=== PATIENT | male | born 1975 | race Two or more races ===

== ENCOUNTER 2019-04-16 22:58 | Emergency (ER) | payer BC ==
--- NOTE | 2019-04-16 23:42 | EDM.PDOC ---
ED HPI GENERAL MEDICAL PROBLEM - General Chief Complaint: Eye Problems Stated Complaint: UNKNOWN Time Seen by Provider: 04/16/19 23:39 Source of Information: Reports: Patient History Limitations: Reports: No Limitations - History of Present Illness INITIAL COMMENTS - FREE TEXT/NARRATIVE: HISTORY AND PHYSICAL: History of present illness: Patient is a 43-year-old divehi speaking male presents to the ED with complaint of something in his left eye. certified court interpreter was used. Patient states that he was wearing safety glasses working on something on the ceiling when a piece of iron got in to his eye. He states he rubbed his eye and it was fine until it started bothering him a couple hours later. He states he feels like there is something under his eyelid and he can feel it every time he blinks. He denies visual changes and has no other complaints at this time. Review of systems: As per history of present illness and below otherwise all systems reviewed and negative. Past medical history: As per history of present illness and as reviewed below otherwise noncontributory. Surgical history: As per history of present illness and as reviewed below otherwise noncontributory. Social history: No reported history of drug or alcohol abuse. Family history: As per history of present illness and as reviewed below otherwise noncontributory. Physical exam: General: Patient sitting comfortably in no acute distress and nontoxic appearing HEENT: There is FB seen with lid eversion. No rust rings or FB noted in the eye. There is a small area of increased uptake to the upper eye with woodslamp examination. Atraumatic, normocephalic, pupils reactive, negative for conjunctival pallor or scleral icterus, mucous membranes moist, throat clear, neck supple, nontender, trachea midline. No meningeal signs. Lungs: Clear to auscultation, breath sounds equal bilaterally, chest nontender. Heart: S1S2, regular, negative for clicks, rubs, or overt murmur. Abdomen: Soft, nondistended, nontender. Negative for masses or hepatosplenomegaly. Negative for costovertebral tenderness. No rigidity, rebound , guarding. Pelvis: Stable nontender. Genitourinary: Deferred. Rectal: Deferred. Extremities: Atraumatic, negative for cords or calf pain. Neurovascular unremarkable. Neuro: Awake, alert, oriented. Cranial nerves II through XII unremarkable. Cerebellum unremarkable. Motor and sensory unremarkable throughout. Exam nonfocal. Notes: Diagnostics: [] Therapeutics: [] Prescriptions: Erythromycin ophthalmic Impression: Corneal abrasion Plan: Use ointment as instructed Follow up with ophthalmology Return to ED as needed as discussed Definitive disposition and diagnosis as appropriate pending reevaluation and review of above. right eye Pain Score (Numeric/FACES): 3 - Related Data Allergies Allergy/AdvReac Type Severity Reaction Status Date / Time Penicillins Allergy Rash Verified 04/16/19 23:19 Home Meds: Home Meds . [No Known Home Meds] 04/16/19 [History] Past Medical History - Past Surgical History GI Surgical History: Reports: Appendectomy Social & Family History - Family History Family Medical History: Noncontributory - Tobacco Use Smoking Status *Q: Never Smoker - Recreational Drug Use Recreational Drug Use: No ED ROS GENERAL - Review of Systems Review Of Systems: ROS reveals no pertinent complaints other than HPI. ED EXAM GENERAL W FULL EYE - Physical Exam Exam: See Below (see dictation) Course - Vital Signs Last Recorded V/S: Last Vital Signs Temp 97 F 04/16/19 22:59 Pulse 82 04/16/19 22:59 Resp 18 04/16/19 22:59 BP 134/91 H 04/16/19 22:59 Pulse Ox 95 04/16/19 22:59 Departure - Departure Time of Disposition: 23:39 Disposition: Home, Self-Care 01 Condition: Good Clinical Impression: Corneal abrasion, right - Discharge Information Instructions: Corneal Abrasion, [id number] Referrals: PCP,None [Primary Care Provider] - Forms: ED Department Discharge Additional Instructions: The following information is given to patients seen in the emergency department who are being discharged to home. This information is to outline your options for follow-up care. We provide all patients seen in our emergency department with a follow-up referral. The need for follow-up, as well as the timing and circumstances, are variable depending upon the specifics of your emergency department visit. If you don't have a primary care physician on staff, we will provide you with a referral. We always advise you to contact your personal physician following an emergency department visit to inform them of the circumstance of the visit and for follow-up with them and/or the need for any referrals to a consulting specialist. The emergency department will also refer you to a specialist when appropriate. This referral assures that you have the opportunity for follow-up care with a specialist. All of these measure are taken in an effort to provide you with optimal care, which includes your follow-up. Under all circumstances we always encourage you to contact your private physician who remains a resource for coordinating your care. When calling for follow-up care, please make the office aware that this follow-up is from your recent emergency room visit. If for any reason you are refused follow-up, please contact the [facility] Emergency Department at and asked to speak to the emergency department charge nurse. [facility] [address] [place] [address] Use ointment as instructed Follow up with ophthalmology Return to ED as needed as discussed
== END 2019-04-16 23:50 | disposition home or self-care (01) ==
LOC: MW.ED 22:58
DX: S05.01XA Injury of conjunctiva and corneal abrasion without foreign body, right eye, initial encounter (principal); Z88.0 Allergy status to penicillin; X58.XXXA Exposure to other specified factors, initial encounter
CPT/HCPCS: 99282; 99283

== ENCOUNTER 2019-11-07 21:49 | Emergency (ER) | payer BC ==
[2019-11-07] MEDS ORDERED: Ibuprofen 600 MG Tab PO ONE (23:05)
--- NOTE | 2019-11-07 23:05 | EDM.PDOC ---
ED [facility] GENERAL MEDICAL PROBLEM - General Chief Complaint: Respiratory Problem Stated Complaint: COUGH Time Seen by Provider: 11/07/19 23:00 Source of Information: Reports: Patient History Limitations: Reports: Language Barrier - History of Present Illness INITIAL COMMENTS - FREE TEXT/NARRATIVE: Patient is 42-year-old male no significant past medical history presenting with a chief complaint of cough and body aches for the past 5 days. Patient is used [id number] medication such as TheraFlu with minimal improvement of symptoms. Patient denies any fevers, shortness of breath, or recent travels. Patient is lived in [place] for the past 6 years. No known sick contacts. No vomiting or diarrhea. Of note, there was difficulty with translation service in the emergency room. Patient is primarily Icelandic-speaking. Pmhx: None Pshx: None Family Hx: noncontributory Review of systems performed and otherwise negative as noted in the HPI I have reviewed the triage vital signs Const: Well nourished, well developed, appears stated age Eyes: PERRL, no conjunctival injection HENT: NCAT, Neck supple without meningismus CV: RRR, Warm, well-perfused extremities RESP: CTAB, Unlabored respiratory effort GI: soft, non-tender, non-distended, no masses MSK: No gross deformities appreciated Skin: Warm, dry. No rashes Neuro: Alert, electrician sound II-XII grossly intact. Sensation and motor function of extremities grossly intact. Psych: Appropriate mood and affect Assessment and plan: Patient is 44-year-old male presenting with chief complaint of upper respiratory tract infection. Patient has no evidence of pneumonia on chest x- ray. Patient is well-appearing and saturating well on room air. Patient will be treated supportively and instructed to stay home from work. Patient given return precautions quit. All questions dressed and answered. Patient is a plan. Headache Pain Score (Numeric/FACES): 9 - Related Data Allergies Allergy/AdvReac Type Severity Reaction Status Date / Time Penicillins Allergy Rash Verified 11/07/19 22:34 Home Meds: Home Meds Benzonatate [Tessalon Perle] 100 mg PO TID #15 capsule 11/07/19 [Rx] Past Medical History HEENT History: Reports: None Cardiovascular History: Reports: Hypertension Respiratory History: Reports: None Genitourinary History: Reports: None Musculoskeletal History: Reports: None Neurological History: Reports: None Psychiatric History: Reports: None Endocrine/Metabolic History: Reports: None Hematologic History: Reports: None Immunologic History: Reports: None Oncologic (Cancer) History: Reports: None Dermatologic History: Reports: None - Past Surgical History Head Surgeries/Procedures: Reports: None GI Surgical History: Reports: Appendectomy Social & Family History - Family History Family Medical History: Noncontributory - Tobacco Use Smoking Status *Q: Never Smoker Second Hand Smoke Exposure: No - Caffeine Use Caffeine Use: Reports: None - Recreational Drug Use Recreational Drug Use: No ED ROS GENERAL - Review of Systems Review Of Systems: See Below ED EXAM, GENERAL - Physical Exam Exam: See Below Course - Vital Signs Last Recorded V/S: Last Vital Signs Temp 35.9 C L 11/07/19 22:12 Pulse 79 11/07/19 22:12 Resp 18 11/07/19 22:12 BP 156/101 H 11/07/19 22:12 Pulse Ox 96 11/07/19 22:12 - Orders/Labs/Meds Meds: Medications Discontinued Medications Generic Name Dose Route Start Last Admin Trade Name Corona PRN Reason Stop Dose Admin Ibuprofen 600 mg 11/07/19 23:05 11/07/19 23:11 Motrin PO 11/07/19 23:06 600 mg ONETIME ONE Administration Departure - Departure Time of Disposition: 23:05 Disposition: Home, Self-Care 01 Clinical Impression: URI, acute - Discharge Information Prescriptions: Benzonatate [Tessalon Perle] 100 mg PO TID #15 capsule Instructions: Upper Respiratory Infection, Adult, [id number] Referrals: PCP,None [Primary Care Provider] - Forms: ED Department Discharge Sepsis Event Note - Evaluation Sepsis Screening Result: No Definite Risk - Focused Exam Vital Signs: Vital Signs Temp Pulse Resp BP Pulse Ox 11/07/19 22:12 35.9 C L 79 18 156/101 H 96 Date Exam was Performed: 11/07/19 Time Exam was Performed: 23:34
--- NOTE | 2019-11-07 23:14 | CR ---
INDICATION: Cough for 5 days TECHNIQUE: Chest radiograph 1 view COMPARISON: None FINDINGS: Mediastinum: The mediastinum is normal in appearance. The heart silhouette is normal in size and morphology. Lung: Both lungs are unremarkable in appearance. No sign of pleural effusion seen. No pneumothorax is identified. Bone and Soft tissue: Unremarkable for age. IMPRESSION: 1. No acute cardiopulmonary disease is seen. Dictated by: Capo Cast MD @ 11/07/2019 23:13:46 (Electronically Signed)
== END 2019-11-07 23:38 | disposition home or self-care (01) ==
LOC: MW.ED 21:49
DX: J06.9 Acute upper respiratory infection, unspecified (principal); I10 Essential (primary) hypertension; Z88.0 Allergy status to penicillin
CPT/HCPCS: 71045; 99283; A9270